=== PATIENT | male | born 1980 | race Two or more races ===

== ENCOUNTER 2023-05-16 12:13 | Outpatient (REF) | payer MEDICAID, SELFPAY ==
[2023-05-16 12:52] LABS: MANUAL DIFF FLAG NO
[2023-05-16 13:29] LABS: Basophils Percent Auto 0.5 % (0-2); Eosinophils Absolute Auto 0.1 X10*3/uL (0.0-0.4); Eosinophils Percent Auto 1.7 % (0-4); Hematocrit 42.3 % (42.0-52.0); Imm Gran Abs Auto 0.02 X10*3/uL (0.00-0.03); Imm Gran Pct Auto 0.5 % (0.0-0.4); Lymphocytes Absolute Auto 1.4 X10*3/uL (1.2-4.9); Lymphocytes Percent Auto 33.9 % (20-40); Mean Corpuscular HGB Conc 35.5 g/dl (31.0-36.0); Mean Corpuscular Hemoglobin 33.1 pg (27.0-33.0); Mean Corpuscular Volume 93.4 fL (80.0-98.0); Mean Platelet Volume 8.6 fL (9.4-12.4); Monocytes Absolute Auto 0.5 X10*3/uL (0.1-1.2); Monocytes Percent Auto 12.4 % (2-11); Neutrophils Absolute Auto 2.1 x10*3/uL (2.0-8.3); Platelet Count 279 X10*3/uL (160-400); Red Blood Count 4.53 X10*6/uL (4.60-5.80); Red Cell Distribution Width 11.4 % (11.0-16.0); White Blood Count 4.2 X10*3/uL (4.8-10.8)
[2023-05-16 13:59] LABS: Alanine Aminotransferase 13 U/L (0-40); Albumin Level 4.2 g/dL (3.5-5.0); Alkaline Phosphatase 44 U/L (39-117); Anion Gap 14 (12-20); Aspartate Amino Transferase 20 U/L (5-37); Blood Urea Nitrogen 9 mg/dL (9-16); Calcium 9.7 mg/dL (8.4-10.2); Carbon Dioxide 27 mmol/L (22-29); Chloride 103 mmol/L (96-108); Estimated Glomerular Filt Rate > 60; Glucose Random 104 mg/dL (60-115); Potassium 3.7 mmol/L (3.3-5.1); Sodium 140 mmol/L (135-145)
[2023-05-17 02:34] LABS: Syphilis Screen Reactive (Nonreactive)
[2023-05-18 16:19] LABS: TS Negative Control Passed; TS Panel A 0; TS Panel B 2; TS Positive Control Passed; TSpotTB Negative (Negative)
[2023-05-19 07:18] LABS: Absolute CD3 Count 1020 cells/uL (840-3060); Absolute CD4 Count 494 cells/uL (490-1740); Absolute CD8 Count 520 cells/uL (180-1170); Absolute Lymphocytes 1389 cells/uL (850-3900); CD4 CD8 Ratio 0.95 (0.86-5.00); Percent CD3 Cells 73 % (57-85); Percent CD4 Cells 36 % (30-61); Percent CD8 Cells 37 % (12-42)
[2023-05-20 18:53] LABS: HIV RNA PCR Qn Copies Not Detected Copies/mL; HIV RNA PCR Qn Log Copies Not Detected Log cps/mL
[2023-05-24 14:18] LABS: RPR Quantitative Reactive 1:128 (Nonreactive); T.Pallidum Particle Agg Test Reactive (Nonreactive)
== END 2023-05-16 12:14 | disposition home or self-care (01) ==
LOC: HO.LAB 12:13
PROVIDERS: Visit Provider Internal Medicine
DX: B20 Human immunodeficiency virus [HIV] disease (principal)
CPT/HCPCS: 36415; 80053; 85025; 86359; 86360; 86481; 86592; 86780; 87536; 87900

== ENCOUNTER 2023-06-02 16:38 | Outpatient (REF) | payer MEDICAID, SELFPAY ==
[2023-06-03 14:37] LABS: CT PCR NOT DETECTED (Not Detect.); NG PCR NOT DETECTED (Not Detect.)
[2023-06-07 16:13] LABS: C. Trachomatis RNA TMA, Throat NOT DETECTED; N. gonorrhoeae RNA TMA, Throat NOT DETECTED
[2023-06-07 16:39] LABS: C.Trachomatis RNA TMA, Rectal NOT DETECTED; N.Gonorrhoeae RNA TMA, Rectal NOT DETECTED
== END 2023-06-02 16:39 | disposition home or self-care (01) ==
LOC: HO.HHCLNP 16:38
PROVIDERS: Visit Provider Emergency Medicine
DX: B20 Human immunodeficiency virus [HIV] disease (principal)
CPT/HCPCS: 0353U; 87491; 87591

== ENCOUNTER 2024-01-02 08:37 | Outpatient (REF) | payer MEDICAID, SELFPAY ==
[2024-01-02 11:19] LABS: MANUAL DIFF FLAG NO
[2024-01-02 11:26] LABS: Basophils Percent Auto 0.8 % (0-2); Eosinophils Absolute Auto 0.2 X10*3/uL (0.0-0.4); Eosinophils Percent Auto 4.5 % (0-4); Hematocrit 46.8 % (42.0-52.0); Imm Gran Abs Auto 0.02 X10*3/uL (0.00-0.03); Imm Gran Pct Auto 0.4 % (0.0-0.4); Lymphocytes Absolute Auto 1.9 X10*3/uL (1.2-4.9); Mean Corpuscular HGB Conc 34.2 g/dl (31.0-36.0); Mean Corpuscular Hemoglobin 31.8 pg (27.0-33.0); Mean Platelet Volume 8.6 fL (9.4-12.4); Monocytes Absolute Auto 0.5 X10*3/uL (0.1-1.2); Monocytes Percent Auto 9.6 % (2-11); Neutrophils Absolute Auto 2.5 x10*3/uL (2.0-8.3); Neutrophils Percent Auto 47.7 % (45-73); Platelet Count 313 X10*3/uL (160-400); Red Blood Count 5.03 X10*6/uL (4.60-5.80); Red Cell Distribution Width 12.4 % (11.0-16.0); White Blood Count 5.1 X10*3/uL (4.8-10.8)
[2024-01-03 16:37] LABS: HIV RNA PCR Qn Copies 65 copies/mL (NOT DETECTED); HIV RNA PCR Qn Log Copies 1.81 (NOT DETECTED)
[2024-01-04 10:44] LABS: Absolute CD3 Count 1405 cells/uL (840-3060); Absolute CD4 Count 538 cells/uL (490-1740); Absolute CD8 Count 858 cells/uL (180-1170); Absolute Lymphocytes 2075 cells/uL (850-3900); CD4 CD8 Ratio 0.63 (0.86-5.00); Percent CD3 Cells 68 % (57-85); Percent CD4 Cells 26 % (30-61); Percent CD8 Cells 41 % (12-42)
[2024-01-04 11:53] LABS: RPR Rapid Plasma Reagin REACTIVE (NON-REACTIVE)
== END 2024-01-02 08:38 | disposition home or self-care (01) ==
LOC: HO.HHCL 08:37
PROVIDERS: Visit Provider Internal Medicine
DX: B20 Human immunodeficiency virus [HIV] disease (principal)
CPT/HCPCS: 36415; 85025; 86359; 86360; 86592; 86593; 87536

== ENCOUNTER 2024-07-01 14:26 | Outpatient (REF) | payer MEDICAID, SELFPAY ==
[2024-07-07 22:39] LABS: Calprotectin, Fecal 48 mcg/g
== END 2024-07-01 14:27 | disposition home or self-care (01) ==
LOC: HO.HHCL 14:26
PROVIDERS: Visit Provider Registered Nurse
DX: R19.7 Diarrhea, unspecified (principal)
CPT/HCPCS: 83993; 87493

== ENCOUNTER 2024-08-27 13:53 | Outpatient (REF) | payer OTHER, SELFPAY ==
[2024-08-27 16:46] LABS: MANUAL DIFF FLAG NO
[2024-08-27 16:58] LABS: Basophils Percent Auto 0.6 % (0-2); Eosinophils Absolute Auto 0.1 X10*3/uL (0.0-0.4); Eosinophils Percent Auto 2.3 % (0-4); Hematocrit 43.4 % (42.0-52.0); Hemoglobin 15.2 g/dl (14.0-18.0); Imm Gran Abs Auto 0.02 X10*3/uL (0.00-0.03); Imm Gran Pct Auto 0.4 % (0.0-0.4); Lymphocytes Absolute Auto 1.7 X10*3/uL (1.2-4.9); Mean Corpuscular Hemoglobin 32.8 pg (27.0-33.0); Mean Corpuscular Volume 93.7 fL (80.0-98.0); Mean Platelet Volume 8.6 fL (9.4-12.4); Monocytes Absolute Auto 0.5 X10*3/uL (0.1-1.2); Monocytes Percent Auto 10.9 % (2-11); Neutrophils Absolute Auto 2.5 x10*3/uL (2.0-8.3); Neutrophils Percent Auto 50.8 % (45-73); Platelet Count 321 X10*3/uL (160-400); Red Blood Count 4.63 X10*6/uL (4.60-5.80); Red Cell Distribution Width 11.6 % (11.0-16.0); White Blood Count 4.9 X10*3/uL (4.8-10.8)
[2024-08-27 17:09] LABS: Alanine Aminotransferase 19 U/L (0-40); Albumin Level 4.3 g/dL (3.5-5.0); Alkaline Phosphatase 65 U/L (39-117); Anion Gap 14 (12-20); Aspartate Amino Transferase 36 U/L (5-37); Bilirubin Total 0.7 mg/dL (0.0-1.0); Blood Urea Nitrogen 11 mg/dL (9-16); C Reactive Protein < 0.04 mg/dL (< or = 0.50); Calcium 9.5 mg/dL (8.4-10.2); Carbon Dioxide 26 mmol/L (22-29); Chloride 105 mmol/L (96-108); Estimated Glomerular Filt Rate > 60; Glucose Random 88 mg/dL (60-115); Potassium 3.9 mmol/L (3.3-5.1); Sodium 141 mmol/L (135-145); Total Protein 7.1 g/dL (6.5-8.0)
[2024-08-27 17:23] LABS: Prostate Specific Antigen 0.54 ng/mL (<0.05-4.0)
[2024-08-27 17:41] LABS: Erythrocyte Sedimentation Rate 2 MM/HR (0-15)
[2024-08-30 22:13] LABS: RPR Rapid Plasma Reagin REACTIVE (NON-REACTIVE)
== END 2024-08-27 13:54 | disposition home or self-care (01) ==
LOC: HO.HHCL 13:53
PROVIDERS: Visit Provider Registered Nurse
DX: R19.7 Diarrhea, unspecified (principal); R39.9 Unspecified symptoms and signs involving the genitourinary system; B20 Human immunodeficiency virus [HIV] disease; Z12.5 Encounter for screening for malignant neoplasm of prostate
CPT/HCPCS: 36415; 80053; 84153; 85025; 85652; 86140; 86592; 86593

== ENCOUNTER 2024-09-11 13:14 | Outpatient (REF) | payer OTHER, SELFPAY ==
[2024-09-11 17:12] LABS: Alanine Aminotransferase 20 U/L (0-40); Albumin Level 4.3 g/dL (3.5-5.0); Alkaline Phosphatase 66 U/L (39-117); Anion Gap 15 (12-20); Aspartate Amino Transferase 40 U/L (5-37); Bilirubin Total 0.9 mg/dL (0.0-1.0); Blood Urea Nitrogen 10 mg/dL (9-16); Calcium 9.3 mg/dL (8.4-10.2); Carbon Dioxide 26 mmol/L (22-29); Chloride 103 mmol/L (96-108); Cholesterol 157 mg/dL (<200); Estimated Glomerular Filt Rate > 60; Glucose Random 84 mg/dL (60-115); HDL Cholesterol 101 mg/dL (>40); LDL Cholesterol Calculated 46 mg/dL (<100); Potassium 3.8 mmol/L (3.3-5.1); Sodium 140 mmol/L (135-145); Total Protein 7.1 g/dL (6.5-8.0); Triglycerides 52 mg/dL (<150)
[2024-09-11 18:39] LABS: Reflex LDLD? No
[2024-09-12 04:04] LABS: ~HepC Num1 10.47 S/CO (0.00-0.79); ~Hepatitis C Antibody Reactive (Nonreactive)
[2024-09-12 13:48] LABS: RPR Rapid Plasma Reagin REACTIVE (NON-REACTIVE)
[2024-09-12 15:27] LABS: Rapid Plasma Reagin Ab Titer 1:16
[2024-09-12 17:43] LABS: HIV RNA PCR Qn Copies 27 copies/mL (NOT DETECTED); HIV RNA PCR Qn Log Copies 1.43 (NOT DETECTED)
[2024-09-14 05:28] LABS: TS Negative Control Passed; TS Panel A 0; TS Panel B 0; TS Positive Control Passed; TSpotTB Negative (Negative)
[2024-09-14 15:14] LABS: HCV Log PCR <1.18 NOT DETECTED Log IU/mL (NOT DETECTED); HepC Viral Load <15 NOT DETECTED IU/mL (NOT DETECTED)
[2024-09-17 14:14] LABS: Absolute CD3 Count 1473 cells/uL (840-3060); Absolute CD4 Count 595 cells/uL (490-1740); Absolute CD8 Count 849 cells/uL (180-1170); Absolute Lymphocytes 2081 cells/uL (850-3900); Percent CD3 Cells 71 % (57-85); Percent CD4 Cells 29 % (30-61); Percent CD8 Cells 41 % (12-42)
== END 2024-09-11 13:15 | disposition home or self-care (01) ==
LOC: HO.HHCL 13:14
PROVIDERS: Visit Provider Internal Medicine
DX: B20 Human immunodeficiency virus [HIV] disease (principal)
CPT/HCPCS: 36415; 80053; 80061; 86359; 86360; 86481; 86592; 86593; 86803; 87522; 87536

== ENCOUNTER 2024-11-21 13:31 | Outpatient (REF) | payer OTHER, SELFPAY | END 2024-11-21 13:32 | disposition home or self-care (01) | LOC: HO.HHCLNP 13:31 | PROVIDERS: Visit Provider Internal Medicine | DX: Z21 Asymptomatic human immunodeficiency virus [HIV] infection status (principal) | CPT/HCPCS: 88112 ==

== ENCOUNTER 2024-11-28 13:29 | Outpatient (REF) | payer OTHER, SELFPAY ==
[2024-11-29 11:15] LABS: Adenovirus F 40/41 Not Detected (Not Detect.); Astrovirus Not Detected (Not Detect.); Campylobacter Not Detected (Not Detect.); Cryptosporidium Not Detected (Not Detect.); Cyclospora cayetanensis Not Detected (Not Detect.); E. coli EAEC Not Detected (Not Detect.); E. coli EPEC Not Detected (Not Detect.); E. coli ETEC Not Detected (Not Detect.); E. coli STEC Not Detected (Not Detect.); Entamoeba histolytica Not Detected (Not Detect.); Norovirus GI/GII Not Detected (Not Detect.); Plesiomonas shigelloides Not Detected (Not Detect.); Rotavirus A Not Detected (Not Detect.); Salmonella Not Detected (Not Detect.); Sapovirus Not Detected (Not Detect.); Shigella sp./EIEC Not Detected (Not Detect.); Vibrio Not Detected (Not Detect.); Vibrio Cholerae Not Detected (Not Detect.); Yersinia enterocolitica Not Detected (Not Detect.)
[2024-11-29 13:11] LABS: Giardia lamblia Detected (Not Detect.)
== END 2024-11-28 13:30 | disposition home or self-care (01) ==
LOC: HO.HHCLNP 13:29
PROVIDERS: Visit Provider Registered Nurse
DX: R19.7 Diarrhea, unspecified (principal); Z11.6 Encounter for screening for other protozoal diseases and helminthiases
CPT/HCPCS: 87338; 87507

== ENCOUNTER 2025-04-28 13:03 | Outpatient (REF) | payer OTHER, SELFPAY ==
[2025-04-28 16:07] LABS: MANUAL DIFF FLAG NO
[2025-04-28 16:11] LABS: Basophils Percent Auto 0.7 % (0-2); Eosinophils Absolute Auto 0.1 X10*3/uL (0.0-0.4); Eosinophils Percent Auto 2.5 % (0-4); Hematocrit 41.8 % (42.0-52.0); Hemoglobin 14.6 g/dl (14.0-18.0); Imm Gran Abs Auto 0.01 X10*3/uL (0.00-0.03); Imm Gran Pct Auto 0.2 % (0.0-0.4); Lymphocytes Absolute Auto 1.4 X10*3/uL (1.2-4.9); Lymphocytes Percent Auto 31.2 % (20-40); Mean Corpuscular HGB Conc 34.9 g/dl (31.0-36.0); Mean Corpuscular Hemoglobin 32.7 pg (27.0-33.0); Mean Corpuscular Volume 93.5 fL (80.0-98.0); Mean Platelet Volume 8.4 fL (9.4-12.4); Monocytes Absolute Auto 0.7 X10*3/uL (0.1-1.2); Neutrophils Absolute Auto 2.1 x10*3/uL (2.0-8.3); Neutrophils Percent Auto 48.4 % (45-73); Platelet Count 307 X10*3/uL (160-400); Red Blood Count 4.47 X10*6/uL (4.60-5.80); Red Cell Distribution Width 12.4 % (11.0-16.0); White Blood Count 4.4 X10*3/uL (4.8-10.8)
[2025-04-28 16:24] LABS: Alanine Aminotransferase 29 U/L (0-40); Albumin Level 4.3 g/dL (3.5-5.0); Alkaline Phosphatase 51 U/L (39-117); Anion Gap 13 (12-20); Aspartate Amino Transferase 47 U/L (5-37); Bilirubin Total 0.8 mg/dL (0.0-1.0); Blood Urea Nitrogen 11 mg/dL (9-16); Calcium 9.4 mg/dL (8.4-10.2); Carbon Dioxide 28 mmol/L (22-29); Chloride 103 mmol/L (96-108); Estimated Glomerular Filt Rate > 60; Glucose Random 87 mg/dL (60-115); Potassium 3.9 mmol/L (3.3-5.1); Sodium 140 mmol/L (135-145)
[2025-04-29 11:38] LABS: Mumps Virus IgG Antibody <9.00 AU/mL; Rubella IgG Antibody <0.90 Index
[2025-04-29 13:13] LABS: RPR Rapid Plasma Reagin REACTIVE (NON-REACTIVE)
[2025-04-30 18:03] LABS: HIV RNA PCR Qn Copies 248 copies/mL (NOT DETECTED); HIV RNA PCR Qn Log Copies 2.39 (NOT DETECTED)
== END 2025-04-28 13:04 | disposition home or self-care (01) ==
LOC: HO.HHCL 13:03
PROVIDERS: PCP Registered Nurse; Visit Provider Internal Medicine
DX: A53.9 Syphilis, unspecified (principal); Z21 Asymptomatic human immunodeficiency virus [HIV] infection status
CPT/HCPCS: 36415; 80053; 85025; 86592; 86593; 86735; 86762; 86765; 87536

== ENCOUNTER 2025-07-10 15:45 | Outpatient (REF) | payer OTHER, SELFPAY ==
[2025-07-10 17:57] LABS: MANUAL DIFF FLAG NO
[2025-07-10 18:12] LABS: Hematocrit 44.0 % (42.0-52.0); Hemoglobin 16.2 g/dl (14.0-18.0); Imm Gran Abs Auto 0.01 X10*3/uL (0.00-0.03); Imm Gran Pct Auto 0.2 % (0.0-0.4); Lymphocytes Absolute Auto 1.8 X10*3/uL (1.2-4.9); Mean Corpuscular HGB Conc 36.8 g/dl (31.0-36.0); Mean Corpuscular Hemoglobin 33.1 pg (27.0-33.0); Mean Corpuscular Volume 89.8 fL (80.0-98.0); NRBC Abs Auto 0.000 X10*3/uL (0.0-0.012); NRBC Pct Auto 0.0 /100WBC (0.0-0.2); Platelet Count 291 X10*3/uL (160-400); Red Blood Count 4.90 X10*6/uL (4.60-5.80); White Blood Count 5.2 X10*3/uL (4.8-10.8)
[2025-07-10 18:29] LABS: Alanine Aminotransferase 30 U/L (0-40); Albumin Level 4.6 g/dL (3.5-5.0); Alkaline Phosphatase 70 U/L (39-117); Anion Gap 14 (12-20); Aspartate Amino Transferase 49 U/L (5-37); Blood Urea Nitrogen 10 mg/dL (9-16); Calcium 8.9 mg/dL (8.4-10.2); Carbon Dioxide 26 mmol/L (22-29); Chloride 103 mmol/L (96-108); Estimated Glomerular Filt Rate > 60; Potassium 4.3 mmol/L (3.3-5.1); Sodium 139 mmol/L (135-145); Total Protein 7.9 g/dL (6.5-8.0)
[2025-07-10 23:50] LABS: CT PCR Urine NOT DETECTED (Not Detect.); NG PCR Urine NOT DETECTED (Not Detect.)
[2025-07-11 14:09] LABS: C. Trachomatis RNA TMA, Throat NOT DETECTED (NOT DETECTED); N. gonorrhoeae RNA TMA, Throat NOT DETECTED (NOT DETECTED)
[2025-07-11 17:28] LABS: C.Trachomatis RNA TMA, Rectal NOT DETECTED (NOT DETECTED); N.Gonorrhoeae RNA TMA, Rectal NOT DETECTED (NOT DETECTED)
[2025-07-11 21:08] LABS: Immunoglobulin A 334 mg/dL (47-310)
[2025-07-13 18:54] LABS: Absolute CD3 Count 1419 cells/uL (840-3060); Absolute CD8 Count 728 cells/uL (180-1170); Percent CD3 Cells 72 % (57-85); Percent CD8 Cells 37 % (12-42)
[2025-07-14 15:29] LABS: HIV RNA PCR Qn Copies 66 copies/mL (NOT DETECTED); HIV RNA PCR Qn Log Copies 1.82 (NOT DETECTED)
[2025-07-14 16:09] LABS: Rapid Plasma Reagin Ab Titer 1:4
== END 2025-07-10 15:46 | disposition home or self-care (01) ==
LOC: HO.HHCL 15:45
PROVIDERS: PCP Registered Nurse; Visit Provider Internal Medicine
DX: Z01.84 Encounter for antibody response examination (principal); Z11.4 Encounter for screening for human immunodeficiency virus [HIV]; Z11.8 Encounter for screening for other infectious and parasitic diseases; Z11.59 Encounter for screening for other viral diseases; Z11.3 Encounter for screening for infections with a predominantly sexual mode of transmission; Z21 Asymptomatic human immunodeficiency virus [HIV] infection status; R19.7 Diarrhea, unspecified
CPT/HCPCS: 36415; 80053; 82784; 85025; 86359; 86360; 86364; 86592; 86593; 87491; 87507; 87536; 87591

== ENCOUNTER 2025-07-21 16:57 | Outpatient (REF) | payer OTHER, SELFPAY ==
[2025-07-23 13:09] LABS: CDiff Gene PCR NEGATIVE (Negative)
[2025-07-23 15:16] LABS: E. coli EAEC Not Detected (Not Detect.); E. coli EPEC Not Detected (Not Detect.); E. coli ETEC Not Detected (Not Detect.); E. coli STEC Not Detected (Not Detect.); Shigella sp./EIEC Not Detected (Not Detect.)
== END 2025-07-21 16:58 | disposition home or self-care (01) ==
LOC: HO.LNP 16:57
PROVIDERS: Visit Provider Internal Medicine
DX: R19.7 Diarrhea, unspecified (principal)
CPT/HCPCS: 87493; 87507

== ENCOUNTER 2025-10-14 12:52 | Outpatient (REF) | payer OTHER, SELFPAY ==
--- NOTE | ~2025-10-14 | US_ITS ---
CLINICAL HISTORY: Elevated liver enzyme. US abdomen complete Comparison: None provided Findings: The visualized pancreas is normal. The aorta and inferior vena cava are normal caliber. The liver is normal in size and echotexture. There is a 0.5 x 0.3 x 0.3 cm echogenicity with shadowing in the inferior right hepatic lobe, likely a small granuloma. There is no intrahepatic bile duct dilatation. The common duct is 4mm in diameter. The gallbladder is normal. There is no sonographic Levine sign. The main portal vein is antegrade. The right kidney is 9.7 cm in length. The left kidney is 10.8 cm in length. The spleen is normal. No ascites. IMPRESSION: Normal complete abdominal ultrasound. This document has been electronically signed by: Delmar Ball MD on 10/14/2025 21:23:03
== END 2025-10-14 12:53 | disposition home or self-care (01) ==
LOC: HO.US 12:52
PROVIDERS: Visit Provider Family Medicine
DX: R74.8 Abnormal levels of other serum enzymes (principal)
CPT/HCPCS: 76700

== ENCOUNTER → 2025-10-14 12:54 | Outpatient (BNV) | payer OTHER, SELFPAY | PROVIDERS: Visit Provider Student in an Organized Health Care Education/Training Program | DX: R94.5 Abnormal results of liver function studies (principal) | CPT/HCPCS: 76700 ==